=== PATIENT | female | born 1935 | race Caucasian/White ===

== ENCOUNTER → 2016-09-01 | Day surgery (SDC) | payer MEDICARE ==
[~2016-09-01] MED LIST: ALPRAZolam 0.25 MG TAB ONE; BACITRACIN OINT 1 EACH PACKET TOPICAL ONE; LIDOCAINE 1% INJ 10MG/ML (20 ML MDV) ONE; SODIUM BICARB 4% 5 ML VIAL (0.48 MEQ/ML) ONE
--- NOTE | 2016-09-01 10:17 | MM ---
EXAMINATION TYPE: MG stereo VAD BX RT, US biopsy breast add'l VAD RT, US biopsy breast VAD RT DATE OF EXAM: 09/01/2016 9:40 AM COMPARISON: Outside bilateral breast mammogram and ultrasound July 20, 2016. CLINICAL HISTORY: Abnormal mammogram and ultrasound TECHNIQUE: Stereotactic guided core biopsy of left breast with clip placement. Ultrasound guided core biopsy of left breast at 2 sites with clip placement. Follow-up two-view mammogram. FINDINGS: The procedure of stereotactic guided and ultrasound-guided core biopsy was explained to the patient. Benefits, alternatives, and risks were discussed. An informed consent was then obtained. Stereotactic guided core biopsy was performed first. Te shortness pathway for biopsy was chosen. Shortness pathway was inferior approach. I performed the localization, then surgeon, Dr. Fung performed the remainder of the procedure. A vacuum assisted biopsy gun was used to obtain multiple core samples. The patient tolerated the procedure well without any immediate complication. The patient was kept in the radiology department for short stay after the procedure and then discharged home in stable condition. Targeted calcifications are identified in specimen mammogram. Post biopsy mammogram shows the clip to appear approximately 2.7 cm more cranial in position satisfactory position relative to the targeted area of concern on the preprocedure images. The patient was subsequently taken to ultrasound for biopsy The patient was placed in supine positioning for imaging and for the procedure. Preprocedure imaging redemonstrates rim calcified shadowing 4 mm lesion at 3:00 position in right breast which is felt suspicious on prior report. Technologist also notes a 3 mm slightly lobulated are completely anechoic lesion at 2:30 position in the right breast not clearly seen on old outside study. This is also chosen for sampling The overlying skin was prepped and draped in usual sterile fashion. Lidocaine buffered with bicarbonate was used as anesthetic into the skin and subcutaneous tissue up to area of concern in the right breast. A beth was made with surgical scalpel. Under ultrasound guidance, a 12-gauge vacuum assisted biopsy gun device was used to obtain 2 core samples at both sites. Following this, a biopsy clip was left in lesion at both sites. The patient tolerated the procedure well without any immediate complication. The patient was kept in the radiology department for short stay after the procedure and then discharged home in stable condition. Postprocedure mammogram shows successful deployment of both clips after ultrasound-guided core biopsy at 2 sites. IMPRESSION: Successful, uncomplicated ultrasound guided core biopsy of 2 areas of concern in the right breast and single stereotactic guided core biopsy of additional third area of concern in the right breast, full pathology results to follow. Low index of suspicion noted for both lesions on ultrasound core biopsy. Intermediate to high index of suspicion noted for lesion on stereotactic guided core biopsy. Pathology Results: Benign A. BREAST, RIGHT, STEREOTACTIC CORE BIOPSY: BENIGN SKIN AND SUBCUTANEOUS FIBROADIPOSE TISSUE FOCALLY REDEMONSTRATING LYMPHOHISTIOCYTIC INFLAMMATION, FIBROSIS AND FAT NECROSIS; BREAST ELEMENTS ARE NOT IDENTIFIED. PENDING DEEPER SECTIONS TO FURTHER EVALUATE FOR CALCIFICATIONS. B. BREAST, RIGHT, THREE O'CLOCK, ULTRASOUND GUIDED CORE BIOPSY: BENIGN BREAST REDEMONSTRATING FOCAL STROMAL FIBROSIS WITH PROMINENT BACKGROUND FIBROADIPOSE TISSUE. C. BREAST, RIGHT TWO THIRTY, ULTRASOUND GUIDED CORE BIOPSY: MATURE BENIGN VASCULARIZED FIBROADIPOSE TISSUE; BREAST ELEMENTS ARE NOT IDENTIFIED. Recommendation Follow up mammogram and ultrasound of the right breast in 6 months. MTDD
--- NOTE | 2016-09-01 18:21 | PCN ---
DATE OF PROCEDURE: Patient is an 81-year-old white female with a mammographic abnormality noted in her right breast. Patient presents for stereotactic core biopsy of the right breast. Patient was placed on the stereotactic table and the area of concern in the right breast was localized. The breast was prepped in a sterile fashion. Lidocaine 1% was used to anesthetize the area of concern. Needle was driven to the correct coordinates. Multiple core biopsies were obtained. The specimen was radiographed, and the area of concern had been sampled. A marking clip was then left behind. Patient tolerated procedure in stable condition. Specimen was sent for pathology.
== END ==
LOC: RADMAMWWP 06:59 → EDSTATUS 08:00
PROVIDERS: ATTEND Surgery
DX: R92.8 Other abnormal and inconclusive findings on diagnostic imaging of breast (principal); I89.1 Lymphangitis; N60.31 Fibrosclerosis of right breast; N64.89 Other specified disorders of breast; N64.1 Fat necrosis of breast
CPT/HCPCS: 88305; 19081; 19083; 19084; A4648 ×2; J2001

== ENCOUNTER → 2017-03-02 | Outpatient (CLI) | payer MEDICARE ==
--- NOTE | 2017-03-02 13:44 | MM ---
Reason for exam: follow-up at short interval from prior study. Last mammogram was performed 4 years and 1 month ago. History: Patient is postmenopausal. Benign MG stereo VAD BX RT of the right breast, September 01, 2016. Benign US biopsy breast VAD RT of the right breast, September 01, 2016. Benign US biopsy breast add'l VAD RT of the right breast, September 01, 2016. Physical Findings: Nurse did not find any significant physical abnormalities on exam. MG 3D Diag Mammo W/Cad RT CC, MLO, and ML view(s) were taken of the right breast. Prior study comparison: January 28, 2013, bilateral digital screening mammo w/CAD. November 21, 2008, mammogram, performed at [facility]. There are scattered fibroglandular densities. No significant new findings when compared with previous films. These results were verbally communicated with the patient and result sheet given to the patient on 03/02/17. ASSESSMENT: Benign, BI-RAD 2 RECOMMENDATION: Routine screening mammogram of both breasts in 6 months. Back on schedule for June 2017.
== END | disposition home or self-care (01) ==
LOC: RADMAMWWP 12:46
PROVIDERS: ATTEND Surgery
DX: R92.8 Other abnormal and inconclusive findings on diagnostic imaging of breast (principal)
CPT/HCPCS: G0206; G0279

== ENCOUNTER → 2018-08-14 | Outpatient (CLI) | payer MEDICARE ==
--- NOTE | 2018-08-14 11:56 | CONS ---
CONSULTATION DATE OF SERVICE: 08/14/2017 REASON FOR EVALUATION: Sleep apnea. This patient is coming in and she is claiming that she thinks that she has sleep apnea. She has been told by her that she has quits breathing and she snores loud and when she wakes up in the morning. She feels her relative non refreshed and somewhat sleepy with an [place] score of 11. She lives in [place], she does not drive long distances and she has been able to manage performing activities of day-to-day life without having any major issues. No family history of obstructive sleep apnea. She has lost weight by implementing a strict diet. She used to weigh around 210, currently she is down to 176 pounds. She sleeps late. She goes to bed around 1 am, gets up 1 a.m. in the morning. Her sleep is somewhat fragmented and she has few arousals throughout the night. For reasons this she is not sure, no symptoms of any restless legs syndrome. PAST MEDICAL HISTORY: 1. Hypertension. 2. Hyperlipidemia. 3. Bronchial asthma. 4. History of anxiety/depression. 5. Remote history of blood clot/DVT back in 1997. PAST SURGICAL HISTORY: Includes cholecystectomy, hysterectomy, foot surgery and resection of a breast cyst and colonoscopy. SOCIAL HISTORY: Nonsmoker, no history of alcohol. No history of drugs. FAMILY HISTORY: Negative for sleep apnea. REVIEW OF SYSTEMS: A 12-point review of system was done. Positive findings are mentioned above history of present illness. There is positive history of weight loss. No history of any motor vehicle accident because of feeling drowsy or sleepy. No history of hallucinations. No cataplexy, no unusual behavior at nighttime during sleep. No report parasomnias, no active anxiety or depression. No claustrophobia. She is a nose breather. No history of any chronic sinus allergies. PHYSICAL EXAMINATION: BP is 131/50, pulse 54, respirations 16, temperature 98.3, saturation 99% on room air. [place] score is 11. BMI 35.5, weight is 176, height is 59 inches, neck size 14, general appearance calm comfortable. Head is atraumatic, normocephalic. NECK: Supple. There is no JVDs, no goiter or neck masses. LUNGS: Clear to auscultation. HEART: Sounds are regular rate and rhythm. Normal S1, S2. No S3. No murmurs. ABDOMEN: Soft, nontender. No organomegaly. EXTREMITIES: No edema. No cyanosis or clubbing at this point. NEUROLOGIC: Alert and oriented x3. No focal neurological deficits. PSYCHIATRIC: Negative for anxiety or depression. IMPRESSION: 1. Hypersomnia, [place] score of 11. Rule out underlying obstructive sleep apnea. The patient has snoring and witnessed apneas as reported by the . 2. There is a remote history of deep venous thrombosis. 3. History of bronchial asthma. 4. Hypertension. 5. Hyperlipidemia. 6. History of anxiety/depression. PLAN: 1. We will proceed with a screening polysomnogram. 2. My overall suspicion for obstructive sleep apnea is low. If anything we may end up finding a mild component of the disease and based on that will make further treatment recommendations. In any rate, a PSG will be needed to establish or rule out the diagnosis and proceed for further treatment options. MMMOIL / WILMERN: [id number] /
== END | disposition home or self-care (01) ==
LOC: SLEEP 09:57
PROVIDERS: ATTEND Internal Medicine Critical Care Medicine
DX: G47.10 Hypersomnia, unspecified (principal); R06.83 Snoring; J45.909 Unspecified asthma, uncomplicated; I10 Essential (primary) hypertension; E78.5 Hyperlipidemia, unspecified; F32.9 Major depressive disorder, single episode, unspecified; F41.9 Anxiety disorder, unspecified; R63.4 Abnormal weight loss; Z90.49 Acquired absence of other specified parts of digestive tract; Z90.710 Acquired absence of both cervix and uterus; Z98.890 Other specified postprocedural states
CPT/HCPCS: 99211